=== PATIENT | female | born 1985 | race Caucasian/White ===

== ENCOUNTER 2019-04-24 17:33 | Emergency (ER) | payer MEDICAID ==
[~2019-04-24] VITALS: Ht 175.3 cm; Wt 65.9 kg
[~2019-04-24 17:33] MED LIST: ALBU18HF2 INH
[2019-04-24 17:35] VITALS: BP 113/78
--- NOTE | 2019-04-24 18:07 | NUR ---
PT CURRENTLY ON EPCLUSA FOR HEP C, IS CONCERNED ABOUT INTERACTIONS WITH ANTIBIOTIC SHE MIGHT BE PRESCRIBED
[2019-04-24] MEDS ORDERED: CLIN150C2 PO (19:19)
== END 2019-04-24 19:35 | disposition home or self-care (01) ==
LOC: ER 17:34
DX: K91.89 Other postprocedural complications and disorders of digestive system (principal); K08.89 Other specified disorders of teeth and supporting structures; J45.909 Unspecified asthma, uncomplicated; Z79.2 Long term (current) use of antibiotics; Z79.899 Other long term (current) drug therapy; Z88.0 Allergy status to penicillin; Z88.1 Allergy status to other antibiotic agents; Z88.8 Allergy status to other drugs, medicaments and biological substances; Z98.818 Other dental procedure status
CPT/HCPCS: 99283